=== PATIENT | female | born 1980 | race African-American/Black ===

== ENCOUNTER 2017-03-23 18:53 | Emergency (ER) | payer MEDICAID, OTHER ==
[~2017-03-23] VITALS: Ht 170.2 cm; Wt 57.2 kg
[~2017-03-23 18:53] MED LIST: IBUPROFEN600 MG ORAL; NKM; NORCO 5-325 TA1 EACH ORAL; TAMIFLU75 MG ORAL; VALIUM5 MG ORAL
[2017-03-23 19:56] LABS: APPEARANCE,URINE SLIGHTLY CLOUDY; KETONES,URINE 3+ (NEGATIVE); LEUKOCYTE ESTERASE ,URINE 1+ (NEGATIVE); NITRITE,URINE NEGATIVE (NEGATIVE); PH,URINE 6 (4.5-8.0); PROTEIN,URINE NEGATIVE (NEGATIVE); UROBILINOGEN,URINE NORMAL MG/DL (0.0-1.0)
[2017-03-23 20:03] LABS: WBC,URINE 0-2 /HPF (0 - 2)
[2017-03-23 20:04] LABS: BACTERIA,URINE MODERATE /HPF; SQUAMOUS EPITHELIAL CELL,UR FEW /LPF (NONE/OCC)
--- NOTE | 2017-03-23 20:21 | Emergency Room Report ---
History of Present Illness General Chief Complaint: Complications Source: Patient Present Illness HPI 37 YO Female presents to the ED c/o pelvic cramping 5/ 10 in severity x 2 days. denies spotting or vaginal d/c. pt. reports that she is 5 weeks . 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 Pt. reports some dysuria, denies hematuria, denies N/V/F/C. denies rashes. Pt denies abdominal or uterine tenderness. pt. denies trauma of the abdomen or fall. pt. states she has her first OBGYN appt. on . Denies CP, Palpitations, LOC, AMS, dizziness, Changes in Vision, Sensation, paresthesias, or a sudden severe headache. Allergies: Coded Allergies: No Known Allergies (Unverified , 05/02/15) Patient History Past Medical History: see triage record Past Surgical History: none Pertinent Family History: none Last Menstrual Period: Now: Yes : 4 Para: 1 Reviewed Nursing Documentation: PMH: Agreed, PSxH: Agreed Nursing Documentation-PMH Past Medical History: No Stated History Review of Systems All Other Systems: negative except mentioned in HPI Physical Exam Vital Signs Date Time Temp Pulse Resp B/P Pulse Ox O2 Delivery O2 Flow Rate FiO2 03/23/17 19:03 98.2 90 18 123/78 100 Room Air Sp02 EP Interpretation: reviewed, normal General Appearance: no apparent distress, alert, GCS 15, non-toxic Head: normocephalic, atraumatic Eyes: bilateral eye PERRL, bilateral eye normal inspection ENT: hearing grossly normal, normal pharynx, no angioedema, normal voice Neck: full range of motion, supple/symm/no masses Respiratory: lungs clear, normal breath sounds, speaking full sentences Cardiovascular #1: regular rate, rhythm, no edema Gastrointestinal: normal bowel sounds, non tender, soft, no guarding, no rebound, other - Negative [place] signs, Negative MacBurney's sign, Negative Rosvigns Sign, Negative Psoas, No Peritoneal signs. Rectal: deferred Genitourinary: normal inspection, no CVA tenderness Musculoskeletal: back normal, gait/station normal, normal range of motion, non- tender Neurologic: alert, oriented x3, responsive, motor strength/tone normal, sensory intact, speech normal Psychiatric: judgement/insight normal, memory normal, mood/affect normal Skin: normal color, no rash, warm/dry, well hydrated Medical Decision Making PA Attestation Dr. Gordon is my supervising Physician whom patient management has been discussed with. Diagnostic Impression: Primary Impression: UTI (urinary tract infection) Qualified Codes: N30.01 - Acute cystitis with hematuria Additional Impression: Threatened in early ER Course 37 YO Female presents to the ED c/o pelvic cramping 5/ 10 in severity x 2 days. denies spotting or vaginal d/c. pt. reports that she is 5 weeks . 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 Pt. reports some dysuria, denies hematuria, denies N/V/F/C. denies rashes. Pt denies abdominal or uterine tenderness. pt. denies trauma of the abdomen or fall. pt. states she has her first OBGYN appt. on . Denies CP, Palpitations, LOC, AMS, dizziness, Changes in Vision, Sensation, paresthesias, or a sudden severe headache. Ddx considered but are not limited to: Fibroid, ectopic , Fibroid, Spontaneous , Vital signs: are WNL, pt. is afebrile H&PE are most consistent with: Cramping during early / threatened , will do imaging and urine testing. ORDERS: -Urine hcg- Positive -UA: bacteria present with elevated leukocytes indicating infection. -Pelvic US complete-IUP too early to date, 5mm uterine fibroid, small amt of pelvic free fluid , bilateral ovaries are WNL- Per official radiology report. ED INTERVENTIONS: None at this time. DISCHARGE: At this time pt. is stable for d/c to home. Will provide printed patient care instructions, and any necessary prescriptions. Care plan and follow up instructions have been discussed with the patient prior to discharge. Labs Test 03/23/17 19:42 Urine Color Pale yellow Urine Appearance Slightly cloudy Urine pH 6 (4.5-8.0) Urine Specific [place] 1.020 (1.005-1.035) Urine Protein Negative (NEGATIVE) Urine Glucose (UA) Negative (NEGATIVE) Urine Ketones 3+ (NEGATIVE) Urine Occult Blood 2+ (NEGATIVE) Urine Nitrite Negative (NEGATIVE) Urine Bilirubin Negative (NEGATIVE) Urine Urobilinogen Normal MG/DL (0.0-1.0) Urine Leukocyte Esterase 1+ (NEGATIVE) Urine RBC 2-4 /HPF (0 - 2) Urine WBC 0-2 /HPF (0 - 2) Urine Squamous Epithelial Cells Few /LPF (NONE/OCC) Urine Bacteria Moderate /HPF (NONE) Urine HCG, Qualitative Positive Last Vital Signs Date Time Temp Pulse Resp B/P Pulse Ox O2 Delivery O2 Flow Rate FiO2 03/23/17 19:03 98.2 90 18 123/78 100 Room Air Disposition: HOME, SELF-CARE Condition: Stable Scripts Phenazopyridine Hcl* (PYRIDIUM*) 100 Mg Tablet 100 MG ORAL THREE TIMES A DAY for 3 Days, #9 TAB Prov: Brisa Zepeda 03/23/17 Nitrofurantoin Monohyd/M-Cryst* (MACROBID 100 MG*) 100 Mg Capsule 100 MG ORAL EVERY 12 HOURS for 5 Days, #10 CAP Prov: Brisa Zepeda 03/23/17 Referrals: NON PHYSICIAN (PCP) Patient Instructions: and Urinary Tract Infection Additional Instructions: Take medications as directed. Follow up with your OBGYN in 3-5 days, even if your symptoms have resolved. Return sooner to ED if new symptoms occur, or current symptoms become worse. Pyridium will cause your urine to change color (Red/[place]), this is a normal side effect of the medication. - Please note that this Emergency Department Report was dictated using Visual[employer]pump house technician technology software, occasionally this can lead to erroneous entry secondary to interpretation by the dictation equipment. Brisa Zepeda Mar 23, 2017 20:21
[2017-03-23] MEDS ORDERED: NITROFURANTOIN100 M2 ORAL (20:33)
[2017-03-23] MEDS ORDERED: PHENAZOPYRIDIN100 MG ORAL (20:39)
[2017-03-23 21:20] VITALS: BP 123/78
--- NOTE | 2017-03-24 10:37 | Diagnostic Imaging Report ---
Indication: PAIN cramping, positive test Technique: Transabdominal and transvaginal images Comparison: None Findings: Uterus measures 10.8 cm length by 4.8 cm AP. Within the endometrium, there is a fluid collection that appears to demonstrate surrounding decidual reaction. It also demonstrates a yolk sac. No pole or heart activity demonstrated. Gestational sac diameter is below measurement limits for assessing the dates. Endometrium measures 16 mm thick There is a 5 cm fibroid within the uterine fundus. There is a small amount of free cul-de-sac fluid. Left ovary measures 2.4 cm in length. Right ovary measures 3.3 cm in length. No adnexal mass demonstrated. There is a small cervical nabothian cyst Impression: Small very early intrauterine , too small to calculate estimated gestational age. Viability indeterminate due to inability to visualize parts. Recommend correlation with serial beta hCGs and followup sonography as indicated 5 cm uterine fundal fibroid Trace free cul-de-sac fluid, most likely physiologic No adnexal mass This agrees with the preliminary interpretation provided overnight by Dr. Mcclendon
== END 2017-03-23 21:20 | disposition home or self-care (01) ==
LOC: EMR 19:31
DX: O23.41 Unspecified infection of urinary tract in pregnancy, first trimester (principal); Z3A.01 Less than 8 weeks gestation of pregnancy; O20.0 Threatened abortion; O34.11 Maternal care for benign tumor of corpus uteri, first trimester; D25.9 Leiomyoma of uterus, unspecified
CPT/HCPCS: 76830; 76856; 81003; 81025; 87086; 99284

== ENCOUNTER 2017-04-18 23:11 | Emergency (ER) | payer MEDICAID, OTHER ==
[~2017-04-18] VITALS: Ht 170.2 cm; Wt 59.0 kg
[~2017-04-18 23:11] MED LIST changes: +NITROFURANTOIN100 M2 ORAL; +PHENAZOPYRIDIN100 MG ORAL
[2017-04-19 01:00] LABS: LYMPHOCYTES % (AUTO) 37.5 % (20.0-45.0); MEAN CORPUSCULAR HEMOGLOBIN 27.2 PG (27.0-31.0); MEAN CORPUSCULAR VOLUME 85 FL (80-99); MEAN PLATELET VOLUME 6.1 FL (6.5-10.1); NEUTROPHILS % (AUTO) 52.6 % (45.0-75.0); PLATELET COUNT 274 K/UL (150-450); RED CELL DISTRIBUTION WIDTH 13.7 % (11.6-14.8); WHITE BLOOD COUNT 9.8 K/UL (4.8-10.8)
[2017-04-19 01:09] LABS: APPEARANCE,URINE CLEAR; KETONES,URINE NEGATIVE (NEGATIVE); LEUKOCYTE ESTERASE ,URINE NEGATIVE (NEGATIVE); NITRITE,URINE NEGATIVE (NEGATIVE); PH,URINE 6.5 (4.5-8.0); PROTEIN,URINE NEGATIVE (NEGATIVE); UROBILINOGEN,URINE NORMAL MG/DL (0.0-1.0)
[2017-04-19 01:10] LABS: BACTERIA,URINE FEW /HPF; SQUAMOUS EPITHELIAL CELL,UR MODERATE /LPF (NONE/OCC); WBC,URINE 0-2 /HPF (0 - 2)
[2017-04-19 01:15] LABS: ALANINE AMINOTRANSFERASE 13 U/L (3-33); ALBUMIN/GLOBULIN RATIO 1.1 (1.0-2.7); ANION GAP 15 (5-15); ASPARTATE AMINO TRANSFERASE 18 U/L (5-40); CALCIUM 9.9 mg/dL (8.6-10.2); CARBON DIOXIDE 23 mEQ/L (20-30); CHLORIDE 100 mEQ/L (98-107); CREATININE 0.8 mg/dL (0.5-0.9); GLOMERULAR FILTRATION RATE > 60 mL/min (>60); HEMOLYSIS 2; POTASSIUM 3.5 mEQ/L (3.4-4.9); SODIUM 138 mEQ/L (135-145); TOTAL PROTEIN 8.2 g/dL (6.6-8.7)
--- NOTE | 2017-04-19 02:17 | Emergency Room Report ---
History of Present Illness General Chief Complaint: Complications Source: Patient Present Illness HPI 37-year-old female (2 abortions, 1 miscarriage) currently 8 weeks with last menstrual period February 08, came to the emergency room because of abnormal sonogram finding. Patient states that she had a pelvic sonogram about 2 weeks ago which showed an intrauterine with cardiac activity. Patient states that she had another sonogram performed this morning, and she was told that there is now no heart rate, and her CABLE INSTALLER REPAIRER HELPER told her to come to the emergency room Pt currently denying any fever chills, abdominal pain, nausea, vomiting, dysuria , vaginal bleeding. Allergies: Coded Allergies: No Known Allergies (Unverified , 05/02/15) Patient History Past Medical History: see triage record Past Surgical History: none Pertinent Family History: none Last Menstrual Period: 02/14/17 Now: Yes : 5 Para: 1 Reviewed Nursing Documentation: PMH: Agreed, PSxH: Agreed Nursing Documentation-PMH Past Medical History: No Stated History Review of Systems All Other Systems: negative except mentioned in HPI Physical Exam Vital Signs Date Time Temp Pulse Resp B/P (MAP) Pulse Ox O2 Delivery O2 Flow Rate FiO2 04/18/17 23:45 98.2 82 18 100/62 99 Room Air Sp02 EP Interpretation: reviewed, normal General Appearance: normal inspection, well appearing, no apparent distress, alert, GCS 15, non-toxic Head: normocephalic, atraumatic Eyes: bilateral eye normal inspection, bilateral eye PERRL, bilateral eye EOMI ENT: normal ENT inspection, normal pharynx, normal voice, moist mucus membranes Neck: normal inspection, full range of motion, supple Respiratory: normal inspection, lungs clear, normal breath sounds, no respiratory distress, no retraction, no wheezing, speaking full sentences, chest symmetrical Cardiovascular #1: normal inspection, regular rate, rhythm, no edema, normal capillary refill Cardiovascular #2: 2+ radial (R), 2+ radial (L) Gastrointestinal: normal inspection, non tender, soft, non-distended, no guarding Genitourinary: no CVA tenderness, other - Patient refused pelvic exam, stated that she had a pelvic exam this morning. Musculoskeletal: normal inspection, back normal, normal range of motion, non- tender Neurologic: normal inspection, alert, oriented x3, responsive, motor strength/ tone normal, sensory intact, normal gait, speech normal Psychiatric: normal inspection, judgement/insight normal, memory normal Skin: normal inspection, normal color, no rash, warm/dry, well hydrated, normal turgor Medical Decision Making Diagnostic Impression: Primary Impression: demise ER Course 37 yo F 8 weeks , came to emergency room for abnormal sonogram finding Differential diagnosis versus miscarriage Ectopic is unlikely as patient stated that she had a sonogram with an IUP 2 weeks ago Plan: cbc, bmp, bhcg, type and screen, ua, ucx pelvic sono ER course: Pelvic sono: IUP with no cardiac activity Pt remains stable/nontoxic appearing in ED. Pt has been ambulatory. VSS Disposition: Patient will be discharged to home. Patient is instructed that she likely has demise as there is now no cardiac activity, patient was informed that she may have vaginal bleeding/ miscarriage. Patient is told to followup with her CABLE INSTALLER REPAIRER HELPER within 48 hours, that if she does not pass the fetus, she may require a D&C Strict return precautions to discussed with patient such as high fever, chills, abdominal pain, intractable nausea or vomiting, worsening/heavy bleeding, lightheadedness or syncope. Patient verbalized understanding. Please note that this Emergency Department Report was dictated using [employer] Technologiescustom ski maker technology software, occasionally this can lead to erroneous entry secondary to interpretation by the dictation equipment. Laboratory Tests Test 04/19/17 00:30 04/19/17 00:42 Urine Color Pale yellow Urine Appearance Clear Urine pH 6.5 (4.5-8.0) Urine Specific [place] 1.020 (1.005-1.035) Urine Protein Negative (NEGATIVE) Urine Glucose (UA) Negative (NEGATIVE) Urine Ketones Negative (NEGATIVE) Urine Occult Blood 2+ (NEGATIVE) H Urine Nitrite Negative (NEGATIVE) Urine Bilirubin Negative (NEGATIVE) Urine Urobilinogen Normal MG/DL (0.0-1.0) Urine Leukocyte Esterase Negative (NEGATIVE) Urine RBC 2-4 /HPF (0 - 2) H Urine WBC 0-2 /HPF (0 - 2) Urine Squamous Epithelial Cells Moderate /LPF (NONE/OCC) H Urine Bacteria Few /HPF (NONE) Urine HCG, Qualitative Positive White Blood Count 9.8 K/UL (4.8-10.8) Red Blood Count 4.20 M/UL (4.20-5.40) Hemoglobin 11.4 G/DL (12.0-16.0) L Hematocrit 35.7 % (37.0-47.0) L Mean Corpuscular Volume 85 FL (80-99) Mean Corpuscular Hemoglobin 27.2 PG (27.0-31.0) Mean Corpuscular Hemoglobin Concent 32.0 G/DL (32.0-36.0) Red Cell Distribution Width 13.7 % (11.6-14.8) Platelet Count 274 K/UL (150-450) Mean Platelet Volume 6.1 FL (6.5-10.1) L Neutrophils (%) (Auto) 52.6 % (45.0-75.0) Lymphocytes (%) (Auto) 37.5 % (20.0-45.0) Monocytes (%) (Auto) 8.0 % (1.0-10.0) Eosinophils (%) (Auto) 1.0 % (0.0-3.0) Basophils (%) (Auto) 1.0 % (0.0-2.0) Sodium Level 138 mEQ/L (135-145) Potassium Level 3.5 mEQ/L (3.4-4.9) Chloride Level 100 mEQ/L (98-107) Carbon Dioxide Level 23 mEQ/L (20-30) Anion Gap 15 (5-15) Blood Urea Nitrogen 8 mg/dL (7-23) Creatinine 0.8 mg/dL (0.5-0.9) Estimate Glomerular Filtration Rate > 60 mL/min (>60) Glucose Level 89 mg/dL (74-106) Calcium Level 9.9 mg/dL (8.6-10.2) Total Bilirubin 0.4 mg/dL (0.0-1.2) Aspartate Amino Transferase (AST) 18 U/L (5-40) Alanine Aminotransferase (ALT) 13 U/L (3-33) Alkaline Phosphatase 39 U/L (35-104) Total Protein 8.2 g/dL (6.6-8.7) Albumin 4.4 g/dL (3.5-5.2) Globulin 3.8 g/dL Albumin/Globulin Ratio 1.1 (1.0-2.7) Human Chorionic Gonadotropin, Quant 76644 mIU/mL Last Vital Signs Date Time Temp Pulse Resp B/P (MAP) Pulse Ox O2 Delivery O2 Flow Rate FiO2 04/18/17 23:45 98.2 82 18 100/62 99 Room Air Disposition: HOME, SELF-CARE Condition: Stable Patient Instructions: Miscarriage, [id number] Additional Instructions: Please follow up with your OBGYN within 3 days. Please come back to the emergency room if you are having abdominal pain, profuse vaginal bleeding, shortness of breath, fainting, or nausea or vomiting Suhail Patricia M.D. Apr 19, 2017 02:17
[2017-04-19 02:19] VITALS: BP 100/62
--- NOTE | 2017-04-19 09:54 | Diagnostic Imaging Report ---
Indication:37-year-old for trimester . Absence of sonographic heart tones at OB office. Patient sent to the emergency department. Technique: Grayscale and duplex Doppler imaging of the pelvis performed utilizing a transabdominal scan and endovaginal scan. Comparison: None Findings: Intrauterine demonstrated with yolk sac and pole, measuring up to 7 weeks 2 days based on crown-rump length. There are no heart tones demonstrated. No cardiac activity visualized on real time grayscale imaging. There is a right ovarian hypoechoic 1.9 cm focus probably a hemorrhagic cyst. The ovaries demonstrate Doppler evidence of blood flow. Impression: 7 week 2 day intrauterine demise.
== END 2017-04-19 02:20 | disposition home or self-care (01) ==
LOC: EMR 23:59
DX: O36.4XX0 Maternal care for intrauterine death, not applicable or unspecified (principal); Z3A.01 Less than 8 weeks gestation of pregnancy
CPT/HCPCS: 36415; 76830; 76856; 80053; 81003; 81025; 84702; 85025; 86850; 86900; 86901; 99284

== ENCOUNTER 2017-08-10 12:49 | Emergency (ER) | payer OTHER, MEDICAID ==
[~2017-08-10] VITALS: Ht 172.7 cm; Wt 59.0 kg
[2017-08-10 13:45] LABS: APPEARANCE,URINE CLEAR; KETONES,URINE NEGATIVE (NEGATIVE); LEUKOCYTE ESTERASE ,URINE 1+ (NEGATIVE); NITRITE,URINE NEGATIVE (NEGATIVE); PH,URINE 8 (4.5-8.0); PROTEIN,URINE NEGATIVE (NEGATIVE); UROBILINOGEN,URINE NORMAL MG/DL (0.0-1.0)
[2017-08-10 14:02] LABS: BACTERIA,URINE FEW /HPF; RBC,URINE 0-2 /HPF (0 - 2); SQUAMOUS EPITHELIAL CELL,UR FEW /LPF (NONE/OCC)
[2017-08-10 14:20] LABS: BASOPHILS % (AUTO) 1.1 % (0.0-2.0); EOSINOPHILS % (AUTO) 0.8 % (0.0-3.0); LYMPHOCYTES % (AUTO) 28.7 % (20.0-45.0); MEAN CORPUSCULAR HEMOGLOBIN 25.7 PG (27.0-31.0); MEAN CORPUSCULAR HGB CONC 30.7 G/DL (32.0-36.0); MEAN CORPUSCULAR VOLUME 84 FL (80-99); MEAN PLATELET VOLUME 6.6 FL (6.5-10.1); MONOCYTES % (AUTO) 6.5 % (1.0-10.0); NEUTROPHILS % (AUTO) 62.9 % (45.0-75.0); PLATELET COUNT 255 K/UL (150-450); RED BLOOD COUNT 4.09 M/UL (4.20-5.40); RED CELL DISTRIBUTION WIDTH 13.5 % (11.6-14.8); WHITE BLOOD COUNT 8.6 K/UL (4.8-10.8)
[2017-08-10 14:37] LABS: ANION GAP 10 mmol/L (5-15); CARBON DIOXIDE 23 MMOL/L (21-32); CHLORIDE 105 MMOL/L (98-107); CREATININE 0.7 MG/DL (0.55-1.30); GLOMERULAR FILTRATION RATE > 60 mL/min (>60); POTASSIUM 4.5 MMOL/L (3.5-5.1); SODIUM 138 MMOL/L (136-145)
[2017-08-10 14:41] LABS: ALANINE AMINOTRANSFERASE 14 U/L (12-78); ALBUMIN/GLOBULIN RATIO 0.9 (1.0-2.7); ASPARTATE AMINO TRANSFERASE 16 U/L (15-37); LIPASE 224 U/L (73-393); TOTAL PROTEIN 7.8 G/DL (6.4-8.2)
--- NOTE | 2017-08-10 15:03 | Emergency Room Report ---
History of Present Illness General Chief Complaint: Complications Source: Patient Present Illness HPI This patient states she is 6 weeks by dates. She is SAB 2 EAB 1. She has not had any complications so far in this . She has an appointment with an OB at 8 weeks. She denies vaginal bleeding. She presents because she has had left lower quadrant abdominal pain for the past few days. She denies dysuria or hematuria. She denies fever or chills. She has no other complaints. Allergies: Coded Allergies: No Known Allergies (Unverified , 05/02/15) Patient History Past Medical History: none Past Surgical History: none Social History: Denies: smoking, alcohol use, drug use Reviewed Nursing Documentation: PMH: Agreed, PSxH: Agreed Nursing Documentation-PMH Past Medical History: No Stated History Review of Systems All Other Systems: negative except mentioned in HPI Physical Exam Vital Signs Date Time Temp Pulse Resp B/P (MAP) Pulse Ox O2 Delivery O2 Flow Rate FiO2 08/10/17 12:54 98.1 101 20 98/65 99 Room Air Sp02 EP Interpretation: reviewed, normal General Appearance: no apparent distress, alert, GCS 15, non-toxic Head: normocephalic, atraumatic Eyes: bilateral eye normal inspection, bilateral eye PERRL ENT: hearing grossly normal, normal pharynx, no angioedema, normal voice Neck: full range of motion, supple/symm/no masses Respiratory: chest non-tender, lungs clear, normal breath sounds, speaking full sentences Cardiovascular #1: regular rate, rhythm, no edema Gastrointestinal: normal bowel sounds, soft, non-distended, no guarding, no rebound, tenderness - Tender to palpation the left lower quadrant. Rectal: deferred Musculoskeletal: back normal, gait/station normal, normal range of motion, non- tender Neurologic: alert, oriented x3, responsive, motor strength/tone normal, sensory intact, speech normal Psychiatric: judgement/insight normal, memory normal, mood/affect normal, no suicidal/homicidal ideation Skin: normal color, no rash, warm/dry, well hydrated Medical Decision Making Diagnostic Impression: Primary Impression: Pelvic pain ER Course This patient presents with left lower quadrant pain. She states she is 6 weeks . However, the patient's hCG is 2. Other laboratory workup to include CBC, CMP are unremarkable. The patient is awaiting a pelvic ultrasound. Anticipate this will be unremarkable. I feel Is Negative Patient Was Discharged Home with Instructions to Followup with Her Primary Care Physician. Final Disposition per Dr. Lundberg. Laboratory Tests Test 08/10/17 13:15 08/10/17 14:00 Urine Color Pale yellow Urine Appearance Clear Urine pH 8 (4.5-8.0) Urine Specific [place] 1.010 (1.005-1.035) Urine Protein Negative (NEGATIVE) Urine Glucose (UA) Negative (NEGATIVE) Urine Ketones Negative (NEGATIVE) Urine Occult Blood Negative (NEGATIVE) Urine Nitrite Negative (NEGATIVE) Urine Bilirubin Negative (NEGATIVE) Urine Urobilinogen Normal MG/DL (0.0-1.0) Urine Leukocyte Esterase 1+ (NEGATIVE) H Urine RBC 0-2 /HPF (0 - 2) Urine WBC 2-4 /HPF (0 - 2) Urine Squamous Epithelial Cells Few /LPF (NONE/OCC) Urine Bacteria Few /HPF (NONE) White Blood Count 8.6 K/UL (4.8-10.8) Red Blood Count 4.09 M/UL (4.20-5.40) L Hemoglobin 10.5 G/DL (12.0-16.0) L Hematocrit 34.2 % (37.0-47.0) L Mean Corpuscular Volume 84 FL (80-99) Mean Corpuscular Hemoglobin 25.7 PG (27.0-31.0) L Mean Corpuscular Hemoglobin Concent 30.7 G/DL (32.0-36.0) L Red Cell Distribution Width 13.5 % (11.6-14.8) Platelet Count 255 K/UL (150-450) Mean Platelet Volume 6.6 FL (6.5-10.1) Neutrophils (%) (Auto) 62.9 % (45.0-75.0) Lymphocytes (%) (Auto) 28.7 % (20.0-45.0) Monocytes (%) (Auto) 6.5 % (1.0-10.0) Eosinophils (%) (Auto) 0.8 % (0.0-3.0) Basophils (%) (Auto) 1.1 % (0.0-2.0) Sodium Level 138 MMOL/L (136-145) Potassium Level 4.5 MMOL/L (3.5-5.1) Chloride Level 105 MMOL/L (98-107) Carbon Dioxide Level 23 MMOL/L (21-32) Anion Gap 10 mmol/L (5-15) Blood Urea Nitrogen 7 mg/dL (7-18) Creatinine 0.7 MG/DL (0.55-1.30) Estimate Glomerular Filtration Rate > 60 mL/min (>60) Glucose Level 90 MG/DL (74-106) Calcium Level 9.0 MG/DL (8.5-10.1) Total Bilirubin 0.3 MG/DL (0.2-1.0) Aspartate Amino Transferase (AST) 16 U/L (15-37) Alanine Aminotransferase (ALT) 14 U/L (12-78) Alkaline Phosphatase 38 U/L (46-116) L Total Protein 7.8 G/DL (6.4-8.2) Albumin 3.6 G/DL (3.4-5.0) Globulin 4.2 g/dL Albumin/Globulin Ratio 0.9 (1.0-2.7) L Lipase 224 U/L (73-393) Human Chorionic Gonadotropin, Quant 2 mIU/mL (1-6) Last Vital Signs Date Time Temp Pulse Resp B/P (MAP) Pulse Ox O2 Delivery O2 Flow Rate FiO2 08/10/17 12:54 98.1 101 20 98/65 99 Room Air Disposition: HOME, SELF-CARE Condition: Stable Referrals: [facility] (PCP) ABI BARKER D.O. Aug 10, 2017 15:03
--- NOTE | 2017-08-10 17:00 | Diagnostic Imaging Report ---
Indication: Left-sided pelvic pain, 6 weeks Technique: Transabdominal and transvaginal images Comparison: 04/19/2017 Findings: Uterus measures 10.6 cm in length by 7.2 cm AP. Within the endometrium, there is a gestational sac. This demonstrates a pole with a crown-rump length of 6 mm is, corresponding to an estimated gestational age of 6 weeks 3 days. There is positive heart activity, heart rate between 93 and 111 bpm. A yolk sac is also noted. There is a slightly heterogeneously hypoechoic area adjacent to the gestational sac which measures 5 cm long axis dimension, could represent an area of subchorionic hemorrhage. There are multiple myometrial fibroids. These measure up to 3.3 cm in diameter. Left ovary measures 4 cm length. Right ovary measures 5 cm length. It contains a 2.6 cm corpus luteum. Small amount free cul-de-sac fluid is noted. Impression: Positive for single live intrauterine , estimated gestational age 6 weeks 3 days by crown-rump length measurement Subtle mixed hypoechoic area adjacent to the gestational sac, measuring 5 cm long axis dimension, possibly a subchorionic hemorrhage heart rate between 93 and 111 bpm Trace cul-de-sac fluid, presumably physiologic Multiple uterine fibroids Findings discussed by phone with Dr. Lundberg at the time of interpretation
[2017-08-10] MEDS ORDERED: TYLENOL EXTRA500 MG ORAL (17:03)
[2017-08-10 17:10] VITALS: BP 110/68
--- NOTE | 2017-08-10 17:58 | Emergency Room Report ---
Physical Exam Vital Signs Date Time Temp Pulse Resp B/P (MAP) Pulse Ox O2 Delivery O2 Flow Rate FiO2 08/10/17 12:54 98.1 101 20 98/65 99 Room Air Medical Decision Making Diagnostic Impression: Primary Impression: Threatened Additional Impression: demise Labs Test 08/10/17 13:15 08/10/17 14:00 Urine Color Pale yellow Urine Appearance Clear Urine pH 8 (4.5-8.0) Urine Specific [place] 1.010 (1.005-1.035) Urine Protein Negative (NEGATIVE) Urine Glucose (UA) Negative (NEGATIVE) Urine Ketones Negative (NEGATIVE) Urine Occult Blood Negative (NEGATIVE) Urine Nitrite Negative (NEGATIVE) Urine Bilirubin Negative (NEGATIVE) Urine Urobilinogen Normal MG/DL (0.0-1.0) Urine Leukocyte Esterase 1+ (NEGATIVE) Urine RBC 0-2 /HPF (0 - 2) Urine WBC 2-4 /HPF (0 - 2) Urine Squamous Epithelial Cells Few /LPF (NONE/OCC) Urine Bacteria Few /HPF (NONE) White Blood Count 8.6 K/UL (4.8-10.8) Red Blood Count 4.09 M/UL (4.20-5.40) Hemoglobin 10.5 G/DL (12.0-16.0) Hematocrit 34.2 % (37.0-47.0) Mean Corpuscular Volume 84 FL (80-99) Mean Corpuscular Hemoglobin 25.7 PG (27.0-31.0) Mean Corpuscular Hemoglobin Concent 30.7 G/DL (32.0-36.0) Red Cell Distribution Width 13.5 % (11.6-14.8) Platelet Count 255 K/UL (150-450) Mean Platelet Volume 6.6 FL (6.5-10.1) Neutrophils (%) (Auto) 62.9 % (45.0-75.0) Lymphocytes (%) (Auto) 28.7 % (20.0-45.0) Monocytes (%) (Auto) 6.5 % (1.0-10.0) Eosinophils (%) (Auto) 0.8 % (0.0-3.0) Basophils (%) (Auto) 1.1 % (0.0-2.0) Sodium Level 138 MMOL/L (136-145) Potassium Level 4.5 MMOL/L (3.5-5.1) Chloride Level 105 MMOL/L (98-107) Carbon Dioxide Level 23 MMOL/L (21-32) Anion Gap 10 mmol/L (5-15) Blood Urea Nitrogen 7 mg/dL (7-18) Creatinine 0.7 MG/DL (0.55-1.30) Estimat Glomerular Filtration Rate > 60 mL/min (>60) Glucose Level 90 MG/DL (74-106) Calcium Level 9.0 MG/DL (8.5-10.1) Total Bilirubin 0.3 MG/DL (0.2-1.0) Aspartate Amino Transf (AST/SGOT) 16 U/L (15-37) Alanine Aminotransferase (ALT/SGPT) 14 U/L (12-78) Alkaline Phosphatase 38 U/L (46-116) Total Protein 7.8 G/DL (6.4-8.2) Albumin 3.6 G/DL (3.4-5.0) Globulin 4.2 g/dL Albumin/Globulin Ratio 0.9 (1.0-2.7) Lipase 224 U/L (73-393) Human Chorionic Gonadotropin, Quant 69340 mIU/mL (1-6) CT/MRI/US Diagnostic Results CT/MRI/US Diagnostic Results : Imaging Test Ordered: OB US Last Vital Signs Date Time Temp Pulse Resp B/P (MAP) Pulse Ox O2 Delivery O2 Flow Rate FiO2 08/10/17 17:10 98.6 87 19 110/68 98 Room Air Status: improved Disposition: HOME, SELF-CARE Condition: Stable Scripts Acetaminophen* (TYLENOL EXTRA STRENGTH*) 500 Mg Tablet 500 MG ORAL Q8H Y for Prn Headache/Temp > 101, #30 TAB 0 Refills Prov: DEVANG GOMEZ M.D. 08/10/17 Patient Instructions: Threatened Miscarriage, [id number] DEVANG GOMEZ M.D. Aug 10, 2017 17:58
== END 2017-08-10 17:10 | disposition home or self-care (01) ==
LOC: EMR 13:38
DX: O20.0 Threatened abortion (principal)
CPT/HCPCS: 36415; 76801; 80053; 81003; 83690; 84702; 85025; 86850; 86900; 86901; 96360; 99284